=== PATIENT | female | born 1990 | race Caucasian/White ===

== ENCOUNTER → 2016-04-02 | Outpatient (CLI) | payer SELFPAY | LOC: M OUTALCOH 10:42 | PROVIDERS: ATTEND Psychiatry & Neurology Psychiatry | DX: Z13.9 Encounter for screening, unspecified (principal); F10.20 Alcohol dependence, uncomplicated; F14.20 Cocaine dependence, uncomplicated | CPT/HCPCS: 36415; 80307; 90791; G0480 ==

== ENCOUNTER 2016-04-23 08:45 | Outpatient (RCR) | payer SELFPAY | END 2016-04-24 | LOC: M OUTALCOH 08:45 | PROVIDERS: ATTEND Psychiatry & Neurology Psychiatry | DX: F10.20 Alcohol dependence, uncomplicated (principal); F14.20 Cocaine dependence, uncomplicated; F17.200 Nicotine dependence, unspecified, uncomplicated ==

== ENCOUNTER 2016-05-21 08:45 | Outpatient (RCR) | payer SELFPAY | END 2016-05-22 | LOC: M OUTALCOH 08:45 | PROVIDERS: ATTEND Psychiatry & Neurology Psychiatry | DX: F10.20 Alcohol dependence, uncomplicated (principal); F14.20 Cocaine dependence, uncomplicated; Z72.0 Tobacco use ==

== ENCOUNTER → 2016-06-20 | Outpatient (REF) | payer BC | LOC: M SFHCWAGY 14:55 | PROVIDERS: ATTEND Nurse Practitioner Women's Health | DX: Z12.4 Encounter for screening for malignant neoplasm of cervix (principal) ==

== ENCOUNTER → 2016-06-22 | Outpatient (RCR) | payer BC | LOC: M OUTALCOH 05-23 14:03 | PROVIDERS: ATTEND Psychiatry & Neurology Psychiatry | DX: F10.20 Alcohol dependence, uncomplicated (principal); F14.20 Cocaine dependence, uncomplicated; Z72.0 Tobacco use ==

== ENCOUNTER → 2016-07-13 | Outpatient (REF) | payer BC ==
[2016-07-13 16:39] LABS: BASO % 0.7 % (0.0-1.0); EOS # 0.1 K/mm3 (0.0-0.50); EOS % 2.6 % (0.0-3.0); LARGE UNSTAINED CELL # 0.1 K/mm3 (0.0-0.4); LARGE UNSTAINED CELL % 1.8 % (0.0-4.0); LYMPH # 1.6 K/mm3 (1.5-6.5); LYMPH % 29.5 % (24.0-44.0); MEAN CORPUSCULAR HEMOGLOBIN 30.1 pg (27.0-33.0); MEAN CORPUSCULAR HGB CONC 33.5 g/dl (32.0-36.5); MEAN CORPUSCULAR VOLUME 89.9 fl (80.0-96.0); MONO # 0.3 K/mm3 (0.0-0.8); MONO % 4.9 % (0.0-5.0); NEUTROPHILS # 3.3 K/mm3 (1.8-7.7); NEUTROPHILS % 60.5 % (36.0-66.0); PLATELET COUNT, AUTOMATED 240 k/mm3 (150-450); RED CELL DISTRIBUTION WIDTH 11.7 % (11.5-14.5); WHITE BLOOD COUNT 5.5 K/mm3 (4.0-10.0)
== END ==
LOC: M SFHCPLAZ 15:36
PROVIDERS: ATTEND Hospitalist
DX: Z00.00 Encounter for general adult medical examination without abnormal findings (principal); R94.6 Abnormal results of thyroid function studies

== ENCOUNTER 2016-07-20 15:00 | Outpatient (RCR) | payer BC | END 2016-07-22 | LOC: M OUTALCOH 15:00 | PROVIDERS: ATTEND Psychiatry & Neurology Psychiatry | DX: Z13.9 Encounter for screening, unspecified (principal); F10.20 Alcohol dependence, uncomplicated; F14.20 Cocaine dependence, uncomplicated; Z72.0 Tobacco use ==

== ENCOUNTER 2016-08-13 14:00 | Outpatient (RCR) | payer BC | END 2016-08-22 | LOC: M OUTALCOH 14:00 | PROVIDERS: ATTEND Psychiatry & Neurology Psychiatry | DX: Z13.9 Encounter for screening, unspecified (principal); F10.20 Alcohol dependence, uncomplicated; F14.20 Cocaine dependence, uncomplicated; Z72.0 Tobacco use ==

== ENCOUNTER → 2016-09-15 | Outpatient (REF) | payer BC | LOC: M LAB REF 09:00 | PROVIDERS: ATTEND Physician Assistant | DX: L03.012 Cellulitis of left finger (principal) ==

== ENCOUNTER 2016-09-17 16:00 | Outpatient (RCR) | payer BC | END 2016-09-21 | LOC: M OUTALCOH 16:00 | PROVIDERS: ATTEND Psychiatry & Neurology Psychiatry | DX: Z13.9 Encounter for screening, unspecified (principal); F10.20 Alcohol dependence, uncomplicated; F14.20 Cocaine dependence, uncomplicated; Z72.0 Tobacco use ==

== ENCOUNTER 2016-10-17 11:00 | Outpatient (RCR) | payer BC, SELFPAY | END 2016-10-22 | LOC: M OUTALCOH 11:00 | PROVIDERS: ATTEND Psychiatry & Neurology Psychiatry | DX: F10.20 Alcohol dependence, uncomplicated (principal); F14.20 Cocaine dependence, uncomplicated; Z72.0 Tobacco use ==

== ENCOUNTER 2016-11-12 10:00 | Outpatient (RCR) | payer BC, SELFPAY | END 2016-11-22 | LOC: M OUTALCOH 10:00 | PROVIDERS: ATTEND Psychiatry & Neurology Psychiatry | DX: F10.20 Alcohol dependence, uncomplicated (principal); F14.20 Cocaine dependence, uncomplicated; Z72.0 Tobacco use ==

== ENCOUNTER 2016-11-28 23:40 | Emergency (ER) | payer BC ==
[~2016-11-28] VITALS: Ht 170.2 cm; Wt 93.1 kg
[2016-11-28 23:40] VITALS: BP 159/99
== END 2016-11-29 00:41 | disposition left against medical advice (07) ==
LOC: M ED 23:40
DX: F09 Unspecified mental disorder due to known physiological condition (principal); Z53.29 Procedure and treatment not carried out because of patient's decision for other reasons

== ENCOUNTER → 2017-05-10 | Outpatient (CLI) | payer OTHER ==
[2017-05-10 13:43] LABS: BASO % 0.3 % (0.0-1.0); EOS # 0.2 10^3/uL (0.0-0.50); EOS % 1.8 % (0.0-3.0); HEMATOCRIT 39.5 % (36.0-47.0); HEMOGLOBIN 13.6 g/dl (12.0-16.0); IMMATURE GRANULOCYTE % 0.3 % (0-3.0); LYMPH # 1.6 10^3/uL (1.5-6.5); LYMPH % 18.6 % (24.0-44.0); MEAN CORPUSCULAR HEMOGLOBIN 30.2 pg (27.0-33.0); MEAN CORPUSCULAR HGB CONC 34.4 g/dl (32.0-36.5); MEAN CORPUSCULAR VOLUME 87.8 fl (80.0-96.0); MONO # 0.4 10^3/uL (0.0-0.8); MONO % 4.8 % (0.0-5.0); NEUTROPHILS # 6.5 10^3/uL (1.8-7.7); NEUTROPHILS % 74.2 % (36.0-66.0); PLATELET COUNT, AUTOMATED 251 10^3/uL (150-450); WHITE BLOOD COUNT 8.7 10^3/uL (4.0-10.0)
[2017-05-10 14:00] LABS: HBsAg Prenatal NEGATIVE (NEGATIVE); RUBELLA IgG QUALITATIVE IMMUNE (IMMUNE)
[2017-05-10 14:28] LABS: HEPATITIS C VIRUS ABY INDEX < 0.0 INDEX (<0.8)
[2017-05-10 14:29] LABS: HIV 1&2 SCREEN CENTAUR NEGATIVE (NEGATIVE)
[2017-05-10 15:08] LABS: CHLAMYDIA DNA AMPLIFICATION NEGATIVE (NEGATIVE); GC DNA AMPLIFICATION NEGATIVE (NEGATIVE)
== END ==
LOC: M SMT 10:12
DX: Z3A.12 12 weeks gestation of pregnancy (principal); Z34.81 Encounter for supervision of other normal pregnancy, first trimester
CPT/HCPCS: 86762

== ENCOUNTER → 2017-07-22 | Outpatient (CLI) | payer OTHER | LOC: M SMT 12:58 | DX: Z34.82 Encounter for supervision of other normal pregnancy, second trimester (principal); Z3A.21 21 weeks gestation of pregnancy | CPT/HCPCS: 36415 ==

== ENCOUNTER → 2017-11-04 | Outpatient (REF) | payer OTHER | LOC: M LAB REF 12:59 | DX: Z34.83 Encounter for supervision of other normal pregnancy, third trimester (principal) ==

== ENCOUNTER 2017-11-26 11:09 | Inpatient (IN) | payer OTHER ==
[2017-11-26] MEDS: LACTATED RINGER'S 1000 ML IV (11:50)
[2017-11-26] MEDS ORDERED: OXYTOCIN 30 UNITS IN 0.9% NaCl 500ML IV BAG (J2590) As Ordered (12:02)
[2017-11-26 12:06] LABS: HEMATOCRIT 38.2 % (36.0-47.0); HEMOGLOBIN 13.1 g/dl (12.0-15.5); MEAN CORPUSCULAR HEMOGLOBIN 30.3 pg (27.0-33.0); MEAN CORPUSCULAR HGB CONC 34.3 g/dl (32.0-36.5); MEAN CORPUSCULAR VOLUME 88.4 fl (80.0-96.0); PLATELET COUNT, AUTOMATED 247 10^3/uL (150-450); RED BLOOD COUNT 4.32 10^6/uL (4.00-5.40); RED CELL DISTRIBUTION WIDTH 12.7 % (11.5-14.5); WHITE BLOOD COUNT 16.5 10^3/uL (4.0-10.0)
[2017-11-26] MEDS ORDERED: FENTANYL 2MCG/ML ROPIVACAINE 0.2% IN 0.9% NACL 200ML IVBAG As Ordered (12:27)
[2017-11-26] MEDS: OXYTOCIN DRIP 30 UNITS in APPROPRIATE DILUENT 1 EA IV (14:03)
[2017-11-26] MEDS: LR 1,000 ML IV (14:25)
[2017-11-26] MEDS ORDERED: DOCUSATE SODIUM 100 MG CAP PO (16:00)
[2017-11-26] MEDS ORDERED: ACETAMINOPHEN 500 MG TAB PO (16:00)
[2017-11-26] MEDS ORDERED: METHYLERGONOVINE MALEATE 0.2 MG TAB PO (16:00)
[2017-11-26] MEDS: miSOPROStol 200 MCG TAB (S0191) PR (16:00)
[2017-11-26] MEDS ORDERED: DIBUCAINE 1% OINTMENT 30GM TOP (16:00)
[2017-11-26] MEDS ORDERED: IBUPROFEN 800 MG TAB PO (16:00)
[2017-11-26] MEDS ORDERED: ANUSOL HC CREAM 30GM TOP (16:00)
[2017-11-26] MEDS: LIDOCAINE 1% MDV 20ML VIAL INFIL (16:00)
[2017-11-26] MEDS ORDERED: MOM 30ML SUSPENSION UDC PO (16:00)
[2017-11-26 16:26] LABS: AMPHETAMINES URINE REFLEX NEGATIVE (NEGATIVE); BARBITURATES URINE REFLEX NEGATIVE (NEGATIVE); BENZODIAZEPINES URINE REFLEX NEGATIVE (NEGATIVE); CANNABINOIDS URINE REFLEX NEGATIVE (NEGATIVE); COCAINE METABOLITE URINE REFLE NEGATIVE (NEGATIVE); CORD GAS ABE A -7.1; CORD GAS HCO3 A 20.6 MEQ/L; CORD GAS O2 SAT A 74.5 %; CORD GAS PCO2 A 49.4 mmHg; CORD GAS PH A 7.239 UNITS; CORD GAS PO2 A 39.3 mmHg; CORD GAS SBC A 18.2 MEQ/L; CORD GAS TCO2 A 22.2 MEQ/L; METHADONE URINE REFLEX NEGATIVE (NEGATIVE); OPIATES URINE REFLEX NEGATIVE (NEGATIVE); PHENCYCLIDINE URINE REFLEX NEGATIVE (NEGATIVE)
[2017-11-26 16:27] LABS: CORD GAS ABE V -6.2; CORD GAS HCO3 V 21.8 MEQ/L; CORD GAS O2 SAT V 64.2 %; CORD GAS PCO2 V 51.8 mmHg; CORD GAS PH V 7.242 UNITS; CORD GAS PO2 V 31.3 mmHg; CORD GAS SBC V 18.6 MEQ/L; CORD GAS TCO2 V 23.4 MEQ/L
[2017-11-26] MEDS: MEASLES,MUMPS,RUBELLA VACCINE INJ (MMR-II) (90707) SC (19:02)
[2017-11-26] MEDS: RHOGAM 300 MCG (1500 IU) INJ (J2790) IM (19:02)
[2017-11-27] MEDS: PRENATAL VITAMINS CHEWABLE TABLET PO (09:30)
[2017-11-28] MEDS: PRENATAL VITAMINS CHEWABLE TABLET PO (08:10)
== END 2017-11-28 11:25 | disposition home or self-care (01) | DRG 560 ==
LOC: M LDI 11:09 → M OBS 18:16
PROVIDERS: Advanced Practice Midwife
PROC: 10E0XZZ Delivery of Products of Conception, External Approach (ICD-10-PCS; principal; 2017-11-26)
PROC: 0KQM0ZZ Repair Perineum Muscle, Open Approach (ICD-10-PCS; 2017-11-26)
DX: O69.1XX0 Labor and delivery complicated by cord around neck, with compression, not applicable or unspecified (principal); O70.1 Second degree perineal laceration during delivery; Z37.0 Single live birth; Z3A.39 39 weeks gestation of pregnancy

== ENCOUNTER 2018-06-13 19:57 | Emergency (ER) | payer MEDICAID, OTHER, SELFPAY ==
[~2018-06-13] VITALS: Ht 170.2 cm; Wt 90.9 kg
[~2018-06-13 19:57] MED LIST: COLA100C5 PO; IBUP-1114 PO; MAPA500T2 PO; MOM30SS PO; PRENTAB9 PO
[2018-06-13] MEDS ORDERED: ANUS25SU PR (22:19)
[2018-06-13 22:24] VITALS: BP 120/72
== END 2018-06-13 22:33 | disposition home or self-care (01) ==
LOC: M ED 19:57
DX: K64.8 Other hemorrhoids (principal); K64.4 Residual hemorrhoidal skin tags; Z87.891 Personal history of nicotine dependence

== ENCOUNTER 2018-11-20 20:19 | Emergency (ER) | payer MEDICAID, SELFPAY ==
[~2018-11-20] VITALS: Ht 170.2 cm; Wt 86.4 kg
[~2018-11-20 20:19] MED LIST changes: +ANUS25SU PR
[2018-11-20 20:20] VITALS: BP 143/78
[2018-11-20] MEDS ORDERED: AUGM875T28 PO (21:06)
[2018-11-20] MEDS ORDERED: AUGMENTIN 875 MG TAB PO ONE (21:15)
== END 2018-11-20 21:24 | disposition home or self-care (01) ==
LOC: M ED 20:19
DX: K04.7 Periapical abscess without sinus (principal); K02.9 Dental caries, unspecified; Z87.891 Personal history of nicotine dependence

== ENCOUNTER → 2019-05-19 | Outpatient (CLI) | payer OTHER ==
[~2019-05-19] MED LIST changes: +AUGM875T28 PO
[2019-05-19 13:24] LABS: BASO # 0.1 10^3/uL (0.0-0.2); BASO % 0.6 % (0.0-1.0); EOS # 0.2 10^3/uL (0.0-0.5); EOS % 1.9 % (0.0-3.0); HEMOGLOBIN 13.5 g/dl (12.0-15.5); LYMPH # 2.1 10^3/uL (1.5-5.0); LYMPH % 25.5 % (24.0-44.0); MEAN CORPUSCULAR HEMOGLOBIN 30.2 pg (27.0-33.0); MEAN CORPUSCULAR HGB CONC 33.8 g/dl (32.0-36.5); MEAN CORPUSCULAR VOLUME 89.5 fl (80.0-96.0); MONO # 0.4 10^3/uL (0.0-0.8); MONO % 4.7 % (0.0-5.0); NEUTROPHILS # 5.5 10^3/uL (1.5-8.5); NEUTROPHILS % 66.9 % (36.0-66.0); PLATELET COUNT, AUTOMATED 251 10^3/uL (150-450); RED BLOOD COUNT 4.47 10^6/uL (4.00-5.40); WHITE BLOOD COUNT 8.3 10^3/uL (4.0-10.0)
[2019-05-19 14:54] LABS: CHLAMYDIA DNA AMPLIFICATION NEGATIVE (NEGATIVE); GC DNA AMPLIFICATION NEGATIVE (NEGATIVE)
[2019-05-20 12:32] LABS: HEPATITIS C VIRUS ABY INDEX < 0.0 INDEX (<0.8); HIV 1&2 SCREEN CENTAUR NEGATIVE (NEGATIVE); RUBELLA IgG QUALITATIVE IMMUNE (IMMUNE)
== END ==
LOC: M PLALAB 11:33
PROVIDERS: ATTEND Advanced Practice Midwife
DX: Z34.91 Encounter for supervision of normal pregnancy, unspecified, first trimester (principal)

== ENCOUNTER → 2019-06-24 | Outpatient (CLI) | payer OTHER | LOC: M PLALAB 09:02 | PROVIDERS: ATTEND Obstetrics & Gynecology | DX: Z13.79 Encounter for other screening for genetic and chromosomal anomalies (principal) ==

== ENCOUNTER → 2019-07-21 | Outpatient (CLI) | payer OTHER ==
--- NOTE | 2019-07-21 18:03 | REP ---
Clinical: Anatomical evaluation. Comparison: None . Findings: Examination demonstrates a single live intrauterine in transverse (head to maternal right) presentation. motion is identified by technologist. Placenta is noted anterior and grade I without evidence for placenta previa or abruption. Amniotic fluid volume is normal. Cervix measures 3.2 cm in length and appears closed. No evidence for nuchal cord. Gestational age by LMP 90 weeks 2 days with RAMONE 12/13/2019 . Gestational age by current measurements 19 weeks 0 days with RAMONE 12/15/2019 . FHR equals 147 beats per minute. BPD 4.3 cm 19 weeks 0 days HC 16.3 cm 19 weeks 0 days AC 13.7 cm 19 weeks 1 day FL 3.0 cm 19 weeks 3 days HL 3.0 cm 19 weeks 5 days HC/AC ratio 1.19 Estimated weight 281 grams ( 44th percentile). Anatomical assessment demonstrates normal structures including cranium, cavum, cerebellum/posterior fossa, facial features, lungs, four-chamber heart/ventricular outflow tracts, diaphragm, stomach, cord insertion/three-vessel cord, kidneys/bladder, spine, and extremities. Small bilateral choroid plexus cysts measure up to 3 mm. Impression: 1. Single live intrauterine in transverse lie demonstrating appropriate interval growth. 2. Small choroid plexus cysts noted. Remainder of the anatomical assessment is complete and normal.
== END ==
LOC: M WHC 13:54
PROVIDERS: ATTEND Obstetrics & Gynecology
DX: Z34.92 Encounter for supervision of normal pregnancy, unspecified, second trimester (principal)

== ENCOUNTER → 2019-09-22 | Outpatient (REF) | payer OTHER ==
[2019-09-22 13:43] LABS: HEMATOCRIT 36.7 % (36.0-47.0); HEMOGLOBIN 11.9 g/dl (12.0-15.5); MEAN CORPUSCULAR HEMOGLOBIN 30.1 pg (27.0-33.0); MEAN CORPUSCULAR HGB CONC 32.4 g/dl (32.0-36.5); MEAN CORPUSCULAR VOLUME 92.9 fl (80.0-96.0); PLATELET COUNT, AUTOMATED 231 10^3/uL (150-450); RED BLOOD COUNT 3.95 10^6/uL (4.00-5.40); WHITE BLOOD COUNT 10.3 10^3/uL (4.0-10.0)
== END ==
LOC: M PLALAB 10:23
PROVIDERS: ATTEND Advanced Practice Midwife
DX: Z34.82 Encounter for supervision of other normal pregnancy, second trimester (principal)

== ENCOUNTER → 2019-11-19 | Outpatient (REF) | payer OTHER | LOC: M WHC 15:30 | PROVIDERS: ATTEND Advanced Practice Midwife | DX: Z34.83 Encounter for supervision of other normal pregnancy, third trimester (principal) ==

== ENCOUNTER 2019-12-03 07:03 | Inpatient (IN) | payer OTHER ==
[~2019-12-03] VITALS: Ht 170.2 cm; Wt 102.0 kg
[2019-12-03] MEDS ORDERED: OXYTOCIN INJ 10 UNITS/ML VIAL (J2590) IM ONE (07:45)
[2019-12-03] MEDS ORDERED: PRENTAB9 PO (07:47)
[2019-12-03] MEDS ORDERED: ACETAMINOPHEN TAB 650MG DOSE (2X325MG) PO PRN (08:00)
[2019-12-03] MEDS ORDERED: IBUPROFEN 600MG TAB PO PRN (08:00)
[2019-12-03] MEDS ORDERED: IBUPROFEN 800 MG TAB PO PRN (08:00)
[2019-12-03] MEDS ORDERED: DIBUCAINE 1% OINTMENT 30GM TOP PRN (08:00)
[2019-12-03] MEDS ORDERED: MEASLES,MUMPS,RUBELLA VACCINE INJ (MMR-II) (90707) SC SCH (08:00)
[2019-12-03] MEDS ORDERED: METHYLERGONOVINE MALEATE 0.2 MG TAB PO PRN (08:00)
[2019-12-03] MEDS ORDERED: RHOGAM 300 MCG (1500 IU) INJ (J2790) IM SCH (08:00)
[2019-12-03] MEDS ORDERED: LIDOCAINE 1% MDV 20ML VIAL INFIL ONE (08:00)
[2019-12-03] MEDS ORDERED: ACETAMINOPHEN 500 MG TAB PO PRN (08:00)
[2019-12-03] MEDS ORDERED: DOCUSATE SODIUM 100 MG CAP PO PRN (08:00)
[2019-12-03] MEDS: PRENATAL VITAMINS CHEWABLE TABLET PO SCH (09:00)
[2019-12-03 10:00] VITALS: BP 128/61
[2019-12-03 18:00] VITALS: BP 129/68
[2019-12-04 05:21] VITALS: BP 107/63
[2019-12-04] MEDS: PRENATAL VITAMINS CHEWABLE TABLET PO SCH (08:09)
== END 2019-12-04 15:10 | disposition home or self-care (01) | DRG 560 ==
LOC: M LDO 07:03 → M LDI 07:23 → M OBS 09:54
PROVIDERS: ADMIT Advanced Practice Midwife; ATTEND Advanced Practice Midwife
PROC: 10E0XZZ Delivery of Products of Conception, External Approach (ICD-10-PCS; principal; 2019-12-03)
PROC: 0HQ9XZZ Repair Perineum Skin, External Approach (ICD-10-PCS; 2019-12-03)
DX: O70.0 First degree perineal laceration during delivery (principal); Z37.0 Single live birth; Z3A.38 38 weeks gestation of pregnancy

== ENCOUNTER → 2020-03-30 | Outpatient (REF) | payer OTHER | LOC: M SFHCWAGY 13:15 | PROVIDERS: ATTEND Advanced Practice Midwife | DX: Z12.4 Encounter for screening for malignant neoplasm of cervix (principal) ==

== ENCOUNTER 2022-02-12 13:54 | Outpatient (RCR) | payer OTHER | END 2022-02-21 | LOC: M PT 13:54 | PROVIDERS: ATTEND Nurse Practitioner Family | DX: M62.00 Separation of muscle (nontraumatic), unspecified site (principal) ==

== ENCOUNTER 2022-03-20 10:42 | Outpatient (RCR) | payer OTHER | END 2022-03-24 | LOC: M PT 10:42 | PROVIDERS: ATTEND Nurse Practitioner Family | DX: M62.00 Separation of muscle (nontraumatic), unspecified site (principal) ==

== ENCOUNTER 2022-04-23 09:53 | Outpatient (RCR) | payer OTHER | END 2022-04-24 | LOC: M PT 09:53 | PROVIDERS: ATTEND Nurse Practitioner Family | DX: M62.00 Separation of muscle (nontraumatic), unspecified site (principal) ==

== ENCOUNTER → 2024-04-04 | Outpatient (REF) | payer OTHER ==
[2024-04-04 19:34] LABS: APPEARANCE, URINE TURBID (CLEAR); BACTERIA, URINE AUTO 2+ (NEGATIVE); BILIRUBIN, URINE AUTO NEGATIVE (NEGATIVE); BLOOD, URINE BLOOD 1+ (NEGATIVE); COLOR, URINE AMBER (YELLOW); GLUCOSE, URINE (UA) AUTO NEGATIVE (NEGATIVE); KETONE, URINE AUTO TRACE mg/dL (NEGATIVE); LEUKOCYTE ESTERASE, URINE AUTO 3+ (NEGATIVE); NITRITE, URINE AUTO NEGATIVE (NEGATIVE); PROTEIN, URINE AUTO 2+ mg/dL (NEGATIVE); RBC, URINE AUTO 60 /HPF (0-3); SPECIFIC GRAVITY URINE AUTO 1.026 (1.002-1.035); SQUAMOUS EPITHELIAL CELL UR AU 3 /HPF (0-6); TRANSITIONAL EPITHELIAL AUTO 2 /HPF; UROBILINOGEN, URINE AUTO 0.2 mg/dL (0.0-2.0); WBC, URINE AUTO TNTC /HPF (0-3)
== END ==
LOC: M LAB REF 18:37
PROVIDERS: ATTEND Physician Assistant
DX: N39.0 Urinary tract infection, site not specified (principal)